=== PATIENT | female | born 1995 | race Caucasian/White ===

== ENCOUNTER 2017-01-31 22:09 | Emergency (ER) | payer BC ==
[2017-01-31 23:18] VITALS: BP 118/62
== END 2017-01-31 23:19 | disposition home or self-care (01) ==
LOC: ED 22:09
DX: H81.10 Benign paroxysmal vertigo, unspecified ear (principal)
CPT/HCPCS: J1885; J2550

== ENCOUNTER 2017-03-01 18:29 | Emergency (ER) | payer BC ==
[2017-03-01 20:34] VITALS: BP 112/68
== END 2017-03-01 20:34 | disposition home or self-care (01) ==
LOC: ED 18:29
DX: M96.830 Postprocedural hemorrhage of a musculoskeletal structure following a musculoskeletal system procedure (principal); J45.909 Unspecified asthma, uncomplicated; Z98.890 Other specified postprocedural states; Z79.899 Other long term (current) drug therapy

== ENCOUNTER 2017-03-18 16:46 | Emergency (ER) | payer BC ==
[~2017-03-18] VITALS: Ht 165.1 cm; Wt 74.8 kg
[2017-03-18 16:49] VITALS: BP 139/91
[2017-03-18 18:15] LABS: BASOPHIL % 0.9 % (0-2); PLATELET COUNT 311 x10^3mcL (130-400); RED CELL DISTRIBUTION WIDTH 13.2 % (11.5-14.5)
[2017-03-18 18:18] LABS: CALCIUM 9.4 mg/dL (8.5-10.1); CARBON DIOXIDE 25.7 mmol/L (21-32); CHLORIDE SERUM 107 mmol/L (98-107); CREATININE SERUM 0.8 mg/dL (0.6-1.0); GFR1 > 60 mL/min; GLUCOSE SERUM 89 mg/dL (74-106); POTASSIUM SERUM 3.6 mmol/L (3.5-5.1); SODIUM SERUM 145 mmol/L (136-145)
[2017-03-18 18:22] LABS: ALBUMIN 4.2 g/dL (3.4-5.0); ALKALINE PHOSPHATASE 61 U/L (46-116); ALT/SGPT 16 U/L (14-59); AMYLASE 57 U/L (25-115); AST/SGOT 16 U/L (15-37); LIPASE 225 IU/L (73-393); TOTAL PROTEIN, SERUM 8.1 g/dL (6.4-8.2)
== END 2017-03-18 19:05 | disposition home or self-care (01) ==
LOC: ED 16:46
PROVIDERS: Emergency Medicine
DX: K92.0 Hematemesis (principal); R04.2 Hemoptysis; J45.909 Unspecified asthma, uncomplicated
CPT/HCPCS: 36415; J2270; Q0162

== ENCOUNTER 2018-02-28 17:56 | Emergency (ER) | payer MEDICAID ==
[~2018-02-28] VITALS: Ht 165.1 cm; Wt 74.8 kg
[2018-02-28 18:08] VITALS: Ht 165.1 cm; Wt 74.8 kg
[2018-02-28 21:44] VITALS: BP 134/81
== END 2018-02-28 21:44 | disposition home or self-care (01) ==
LOC: ED 17:56
DX: S46.911A Strain of unspecified muscle, fascia and tendon at shoulder and upper arm level, right arm, initial encounter (principal); S46.912A Strain of unspecified muscle, fascia and tendon at shoulder and upper arm level, left arm, initial encounter; S66.911A Strain of unspecified muscle, fascia and tendon at wrist and hand level, right hand, initial encounter; J45.909 Unspecified asthma, uncomplicated; Z88.8 Allergy status to other drugs, medicaments and biological substances; X58.XXXA Exposure to other specified factors, initial encounter; Y93.89 Activity, other specified; Y92.89 Other specified places as the place of occurrence of the external cause; Y99.8 Other external cause status
CPT/HCPCS: J1885

== ENCOUNTER 2018-03-17 20:35 | Emergency (ER) | payer MEDICAID ==
[~2018-03-17] VITALS: Ht 165.1 cm; Wt 73.9 kg
[2018-03-17 22:50] VITALS: BP 130/72
== END 2018-03-17 22:50 | disposition home or self-care (01) ==
LOC: ED 20:35
PROC: BW28ZZZ Computerized Tomography (CT Scan) of Head (ICD-10-PCS; principal; 2018-03-17)
DX: S09.90XA Unspecified injury of head, initial encounter (principal); S06.0X0A Concussion without loss of consciousness, initial encounter; W22.8XXA Striking against or struck by other objects, initial encounter; Y92.009 Unspecified place in unspecified non-institutional (private) residence as the place of occurrence of the external cause
CPT/HCPCS: Q0162

== ENCOUNTER 2018-04-19 19:57 | Emergency (ER) | payer SELFPAY ==
[~2018-04-19] VITALS: Ht 165.1 cm; Wt 72.6 kg
[2018-04-19 21:09] VITALS: Ht 165.1 cm; Wt 72.6 kg
[2018-04-19 23:54] VITALS: BP 158/65
== END 2018-04-19 23:54 | disposition home or self-care (01) ==
LOC: ED 19:57
DX: S43.402A Unspecified sprain of left shoulder joint, initial encounter (principal); J45.909 Unspecified asthma, uncomplicated; X50.9XXA Other and unspecified overexertion or strenuous movements or postures, initial encounter; Y93.89 Activity, other specified; Y92.89 Other specified places as the place of occurrence of the external cause; Y99.8 Other external cause status
CPT/HCPCS: J1885

== ENCOUNTER 2018-04-24 21:34 | Emergency (ER) | payer MEDICAID ==
[~2018-04-24] VITALS: Ht 165.1 cm; Wt 72.6 kg
[2018-04-24 21:54] VITALS: Ht 165.1 cm; Wt 72.6 kg
== END 2018-04-24 23:00 | disposition home or self-care (01) ==
LOC: ED 21:34
DX: J45.909 Unspecified asthma, uncomplicated (principal); Z88.5 Allergy status to narcotic agent

== ENCOUNTER 2019-01-30 04:54 | Emergency (ER) | payer OTHER ==
[~2019-01-30] VITALS: Ht 165.1 cm; Wt 72.6 kg
[2019-01-30 05:02] VITALS: Ht 165.1 cm; Wt 72.6 kg
[2019-01-30 06:20] VITALS: BP 129/65
== END 2019-01-30 06:20 | disposition home or self-care (01) ==
LOC: ED 04:54
DX: F41.9 Anxiety disorder, unspecified (principal); R07.89 Other chest pain; J45.909 Unspecified asthma, uncomplicated; Z88.5 Allergy status to narcotic agent; Z98.890 Other specified postprocedural states; Z88.8 Allergy status to other drugs, medicaments and biological substances
CPT/HCPCS: J2060; J7620

== ENCOUNTER 2019-02-08 02:02 | Emergency (ER) | payer OTHER ==
[~2019-02-08] VITALS: Ht 165.1 cm; Wt 72.6 kg
[2019-02-08 02:13] VITALS: Ht 165.1 cm; Wt 72.6 kg
[2019-02-08 02:56] VITALS: BP 129/76
== END 2019-02-08 02:56 | disposition home or self-care (01) ==
LOC: ED 02:02
DX: J32.9 Chronic sinusitis, unspecified (principal); J45.909 Unspecified asthma, uncomplicated; Z98.890 Other specified postprocedural states; Z91.030 Bee allergy status; Z88.5 Allergy status to narcotic agent; Z88.8 Allergy status to other drugs, medicaments and biological substances

== ENCOUNTER 2019-06-11 01:13 | Emergency (ER) | payer OTHER ==
[~2019-06-11] VITALS: Ht 165.1 cm; Wt 70.3 kg
[2019-06-11 03:09] VITALS: BP 120/84
== END 2019-06-11 03:09 | disposition home or self-care (01) ==
LOC: ED 01:13
DX: S40.012A Contusion of left shoulder, initial encounter (principal); J45.909 Unspecified asthma, uncomplicated; Z98.890 Other specified postprocedural states; Z91.018 Allergy to other foods; Z88.5 Allergy status to narcotic agent; Z88.8 Allergy status to other drugs, medicaments and biological substances; W01.0XXA Fall on same level from slipping, tripping and stumbling without subsequent striking against object, initial encounter; Y93.63 Activity, rugby; Y92.031 Bathroom in apartment as the place of occurrence of the external cause; Y99.8 Other external cause status
CPT/HCPCS: Q0092

== ENCOUNTER 2019-08-27 12:46 | Emergency (ER) | payer OTHER ==
[~2019-08-27] VITALS: Ht 160 cm; Wt 72.6 kg
[2019-08-27 13:00] VITALS: Ht 160 cm; Wt 72.6 kg
[2019-08-27 14:32] VITALS: BP 127/81
== END 2019-08-27 14:32 | disposition home or self-care (01) ==
LOC: ED 12:46
DX: S09.90XA Unspecified injury of head, initial encounter (principal); W22.8XXA Striking against or struck by other objects, initial encounter; Y93.89 Activity, other specified; Y92.89 Other specified places as the place of occurrence of the external cause; Y99.8 Other external cause status
CPT/HCPCS: J1885

== ENCOUNTER 2020-03-20 06:01 | Emergency (ER) | payer OTHER ==
[~2020-03-20] VITALS: Ht 162.6 cm; Wt 78.9 kg
[2020-03-20 10:25] VITALS: BP 125/74
== END 2020-03-20 10:25 | disposition home or self-care (01) ==
LOC: ED 06:01
DX: R10.31 Right lower quadrant pain (principal); B34.9 Viral infection, unspecified; J45.909 Unspecified asthma, uncomplicated; Z98.890 Other specified postprocedural states; Z88.5 Allergy status to narcotic agent; Z88.8 Allergy status to other drugs, medicaments and biological substances; Z91.030 Bee allergy status
CPT/HCPCS: J1885

== ENCOUNTER 2020-06-26 12:50 | Emergency (ER) | payer OTHER ==
[~2020-06-26] VITALS: Ht 165.1 cm; Wt 82.6 kg
[2020-06-26 13:18] VITALS: Ht 165.1 cm; Wt 82.6 kg
[2020-06-26 14:45] LABS: BASOPHIL % 0.6 % (0-2); PLATELET COUNT 309 x10^3mcL (130-400); RED CELL DISTRIBUTION WIDTH 13.2 % (11.5-14.5)
[2020-06-26 15:08] LABS: microscopic required? YES; urine erythrocyte TRACE (NEGATIVE)
[2020-06-26 15:20] LABS: CALCIUM 9.4 mg/dL (8.5-10.1); CARBON DIOXIDE 25.5 mmol/L (21-32); CHLORIDE SERUM 105 mmol/L (98-107); CREATININE SERUM 0.7 mg/dL (0.6-1.0); GFR1 > 60 mL/min; GLUCOSE SERUM 89 mg/dL (74-106); POTASSIUM SERUM 3.5 mmol/L (3.5-5.1); SODIUM SERUM 135 mmol/L (136-145)
[2020-06-26 15:32] LABS: ALBUMIN 4.4 g/dL (3.4-5.0); ALKALINE PHOSPHATASE 51 U/L (46-116); ALT/SGPT 20 U/L (14-59); AST/SGOT 16 U/L (15-37); BILIRUBIN TOTAL 0.27 mg/dL (0.20-1.00)
[2020-06-26 15:41] LABS: TOTAL PROTEIN, SERUM 8.3 g/dL (6.4-8.2)
[2020-06-26 16:11] VITALS: BP 126/52
== END 2020-06-26 16:11 | disposition home or self-care (01) ==
LOC: ED 12:50
PROVIDERS: Emergency Medicine
DX: N93.8 Other specified abnormal uterine and vaginal bleeding (principal); R31.9 Hematuria, unspecified; J45.909 Unspecified asthma, uncomplicated; Z98.890 Other specified postprocedural states; Z88.5 Allergy status to narcotic agent; Z88.8 Allergy status to other drugs, medicaments and biological substances